=== PATIENT | female | born 1930 | race Caucasian/White ===

== ENCOUNTER 2017-01-03 11:11 | Emergency (ER) | payer MEDICARE, OTHER ==
[~2017-01-03] VITALS: Ht 172.7 cm; Wt 67.1 kg
[~2017-01-03 11:11] MED LIST: ASP81TEC PO; CALTRATE; DCS100C PO; DOXY100C2 PO; LEVO5TAB19 PO; LSRT50T PO; MECL-124 PO; METO50TA7 PO; MULT1TAB5 PO; PRD20T PO; SMV10T; SMV10T PO; SULF1TAB38; TLT2T PO; TOLT2CAP; VITAMIN D
[2017-01-03 11:36] LABS: BASOPHILS % (AUTO) 1 % (0-10); EOSINOPHILS # (AUTO) 0.2 10^3/uL (0.0-0.3); EOSINOPHILS % (AUTO) 3 % (0-10); LYMPHOCYTES # (AUTO) 0.5 X 10^3 (1.0-4.0); LYMPHOCYTES % (AUTO) 7 % (12-44); MEAN CORPUSCULAR HEMOGLOBIN 30 PG (25-34); MEAN CORPUSCULAR HGB CONC 33 G/DL (32-36); MEAN CORPUSCULAR VOLUME 91 FL (80-99); MEAN PLATELET VOLUME 10.5 FL (7.4-10.4); MONOCYTES # (AUTO) 0.4 X 10^3 (0.0-1.0); MONOCYTES % (AUTO) 7 % (0-12); NEUTROPHILS # (AUTO) 5.5 X 10^3 (1.8-7.8); NEUTROPHILS % (AUTO) 83 % (42-75); PLATELET COUNT 168 10^3/uL (130-400); RED BLOOD COUNT 4.42 10^6/uL (4.35-5.85); RED CELL DISTRIBUTION WIDTH 12.5 % (10.0-14.5); WHITE BLOOD COUNT 6.7 10^3/uL (4.3-11.0)
[2017-01-03] MEDS ORDERED: LOSA100T3 PO (11:46)
[2017-01-03] MEDS ORDERED: SULF1TAB35 PO (11:46)
[2017-01-03 11:56] LABS: ALANINE AMINOTRANSFERASE 18 U/L (0-55); ALBUMIN 3.9 G/DL (3.2-4.5); ANION GAP 10 MMOL/L (5-14); ASPARTATE AMINO TRANSFERASE 21 U/L (5-34); BILIRUBIN,TOTAL 0.6 MG/DL (0.1-1.0); BLOOD UREA NITROGEN 12 MG/DL (7-18); BUN/CREATININE RATIO 14; CALCIUM 8.9 MG/DL (8.5-10.1); CARBON DIOXIDE 25 MMOL/L (21-32); CHLORIDE 103 MMOL/L (98-107); CREATININE SERUM 0.85 MG/DL (0.60-1.30); GFR ESTIMATED > 60; GLUCOSE 97 MG/DL (70-105); POTASSIUM 3.5 MMOL/L (3.6-5.0); SODIUM 138 MMOL/L (135-145); TOTAL PROTEIN 6.7 G/DL (6.4-8.2)
[2017-01-03 12:02] LABS: TROPONIN I < 0.30 NG/ML (<0.30)
[2017-01-03 12:04] LABS: BASOPHILS % (MANUAL) 1 %; EOSINOPHILS % (MANUAL) 2 %; LYMPHOCYTES % (MANUAL) 4 %; NEUTROPHILS % (MANUAL) 88 %
--- NOTE | 2017-01-03 12:06 | Diagnostic Imaging Report ---
INDICATION: Irregular heartbeat. Patient started on medication. FINDINGS: The lungs are well-aerated. There are no infiltrates. No masses are demonstrated. The heart is not enlarged. There is no evidence of pulmonary edema. There is no hilar adenopathy. No pneumothorax or pleural effusion. IMPRESSION: Normal portable chest. Dictated by: Dictated on workstation # [id number]
--- NOTE | 2017-01-03 12:38 | ED Cardiac General ---
History of Present Illness General Chief Complaint: Cardiac/General Problems Stated Complaint: FAST HEART BEAT Nursing Triage Note: Pt. advises she has been experiencing an increase in her heart rate. She advises hx. of mitral valve. Source: patient Exam Limitations: no limitations History of Present Illness Time seen by provider: 12:31 Initial Comments The patient is a pleasant 86-year-old white female. She presents today because she believes that the Bactrim she has been taking for 2 days to treat a urinary tract infection is making her heart rate fast. She felt a pulse of 100 at home. She takes metoprolol. She has a history of mitral valve prolapse. There are no other complaints Timing/Duration: 4-6 hours Allergies and Home Medications Allergies Coded Allergies: No Known Drug Allergies (Verified , 05/14/09) Home Medications Aspirin 81 Mg Tabec, 81 MG PO DAILY, (Reported) Losartan Potassium 100 Mg Tablet, 100 MG PO DAILY, (Reported) Metoprolol Succinate 50 Mg Tab, 50 MG PO DAILY, (Reported) Multiv,Ca,Iron,Min/Fa/Phytoste 1 Each Tablet, 1 EACH PO DAILY, (Reported) Sulfamethoxazole/Trimethoprim 1 Each Tablet, 1 EACH PO BID for 7 Days, (Reported ) Tolterodine Tartrate 2 Mg Tab, 2 MG PO DAILY, (Reported) Review of Systems Constitutional: see HPI EENTM: No Symptoms Reported Respiratory: No Symptoms Reported Cardiovascular: See HPI, Palpitations Gastrointestinal: No Symptoms Reported Genitourinary: No Symptoms Reported, See HPI Musculoskeletal: no symptoms reported Skin: no symptoms reported Psychiatric/Neurological: No Symptoms Reported Endocrine: No Symptoms Reported Hematologic/Lymphatic: No Symptoms Reported Past Bnjtecz-Twolcj-Neokgf Hx Patient Social History Alcohol Use: Denies Use Recreational Drug Use: No Smoking Status: Never a Smoker Recent Foreign Travel: No Contact w/Someone Who Travel: No Recent Infectious Disease Expo: No Recent Hopitalizations: No Immunizations Up To Date Date of Pneumonia Vaccine: Oct 12, 2008 Date of Influenza Vaccine: Aug 05, 2016 Seasonal Allergies Seasonal Allergies: Yes Surgeries HX Surgeries: Yes Surgeries: Hysterectomy Respiratory Hx Respiratory Disorders: No Cardiovascular Hx Cardiac Disorders: Yes (MITRAL VALVE) Neurological Hx Neurological Disorders: Yes Neurological Disorders: Multiple Sclerosis Reproductive System Hx Reproductive Disorders: No Genitourinary Hx Genitourinary Disorders: Yes (urinary urgency) Gastrointestinal Hx Gastrointestinal Disorders: Yes Gastrointestinal Disorders: Chronic Constipation Musculoskeletal Hx Musculoskeletal Disorders: No Endocrine Hx Endocrine Disorders: No HEENT HX ENT Disorders: No Cancer Hx Cancer: No Psychosocial Hx Psychiatric Problems: Yes ("nervous") Behavioral Health Disorders: Anxiety Integumentary HX Skin/Integumentary Disorder: Yes (athelete's foot) Physical Exam Vital Signs Vital Sign - Last 12Hours 01/03/17 11:38 Temp 99.3 Pulse 85 Resp 14 B/P (MAP) 134/61 Pulse Ox 99 O2 Delivery Room Air Capillary Refill : Less Than 3 Seconds General Appearance: No Apparent Distress, WD/WN HEENT: Normal ENT Inspection Neck: Normal Inspection Respiratory: Chest Non Tender, Lungs Clear, Normal Breath Sounds, No Accessory Muscle Use, No Respiratory Distress Cardiovascular: Regular Rate, Rhythm, No Edema, No Gallop, No JVD, No Murmur, Normal Peripheral Pulses Gastrointestinal: Normal Bowel Sounds, No Organomegaly, No Pulsatile Mass, Non Tender Extremity: Normal Capillary Refill, Normal Inspection, Normal Range of Motion, Non Tender, No Calf Tenderness, No Pedal Edema Neurologic/Psychiatric: Alert, Oriented x3, No Motor/Sensory Deficits, Normal Mood/Affect Skin: Normal Color, Warm/Dry Lymphatic: No Adenopathy Progress/Results/Core Measures Results/Orders Lab Results Laboratory Tests Test 01/03/17 11:29 Range/Units White Blood Count 6.7 4.3-11.0 10^3/uL Red Blood Count 4.42 4.35-5.85 10^6/uL Hemoglobin 13.3 11.5-16.0 G/DL Hematocrit 40 35-52 % Mean Corpuscular Volume 91 80-99 FL Mean Corpuscular Hemoglobin 30 25-34 PG Mean Corpuscular Hemoglobin Concent 33 32-36 G/DL Red Cell Distribution Width 12.5 10.0-14.5 % Platelet Count 168 130-400 10^3/uL Mean Platelet Volume 10.5 H 7.4-10.4 FL Neutrophils (%) (Auto) 83 H 42-75 % Lymphocytes (%) (Auto) 7 L 12-44 % Monocytes (%) (Auto) 7 0-12 % Eosinophils (%) (Auto) 3 0-10 % Basophils (%) (Auto) 1 0-10 % Neutrophils # (Auto) 5.5 1.8-7.8 X 10^3 Lymphocytes # (Auto) 0.5 L 1.0-4.0 X 10^3 Monocytes # (Auto) 0.4 0.0-1.0 X 10^3 Eosinophils # (Auto) 0.2 0.0-0.3 10^3/uL Basophils # (Auto) 0.0 0.0-0.1 10^3/uL Neutrophils % (Manual) 88 % Lymphocytes % (Manual) 4 % Monocytes % (Manual) 5 % Eosinophils % (Manual) 2 % Basophils % (Manual) 1 % Blood Morphology Comment NORMAL Sodium Level 138 135-145 MMOL/L Potassium Level 3.5 L 3.6-5.0 MMOL/L Chloride Level 103 98-107 MMOL/L Carbon Dioxide Level 25 21-32 MMOL/L Anion Gap 10 5-14 MMOL/L Blood Urea Nitrogen 12 7-18 MG/DL Creatinine 0.85 0.60-1.30 MG/DL Estimat Glomerular Filtration Rate > 60 BUN/Creatinine Ratio 14 Glucose Level 97 70-105 MG/DL Calcium Level 8.9 8.5-10.1 MG/DL Total Bilirubin 0.6 0.1-1.0 MG/DL Aspartate Amino Transf (AST/SGOT) 21 5-34 U/L Alanine Aminotransferase (ALT/SGPT) 18 0-55 U/L Alkaline Phosphatase 66 40-136 U/L Troponin I < 0.30 <0.30 NG/ML Total Protein 6.7 6.4-8.2 G/DL Albumin 3.9 3.2-4.5 G/DL My Orders Orders - VIJAY BEDOYA MD Ekg Tracing (01/03/17 11:20) Cbc With Automated Diff (01/03/17 11:20) Comprehensive Metabolic Panel (01/03/17 11:20) Troponin I (01/03/17 11:20) Chest 1 View, Ap/Pa Only (01/03/17 11:20) Manual Differential (01/03/17 11:29) Vital Signs/I&O Vital Sign - Last 12Hours 01/03/17 11:38 Temp 99.3 Pulse 85 Resp 14 B/P (MAP) 134/61 Pulse Ox 99 O2 Delivery Room Air Blood Pressure Mean: 85 Departure Impression Impression: Primary Impression: normal exam Disposition: 01 HOME, SELF-CARE Condition: Stable/Unchanged Departure-Patient Inst. Decision time for Depature: 12:39 Referrals: JUSTIN SALDAÑA DO (PCP/Family) Primary Care Physician Add. Discharge Instructions: All discharge instructions reviewed with patient and/or family. Voiced understanding. Do not worry about a heart rate in the low 100s. Finish your Bactrim Continue to take your metoprolol If further problems see your provider VIJAY BEDOYA MD Jan 03, 2017 12:38
[2017-01-03 12:51] VITALS: BP 127/53
== END 2017-01-03 12:54 | disposition home or self-care (01) ==
LOC: EDUNIT# 11:11 → ER 11:13
DX: R00.0 Tachycardia, unspecified (principal); I34.1 Nonrheumatic mitral (valve) prolapse; Z79.899 Other long term (current) drug therapy
CPT/HCPCS: 36415; 71010; 80053; 84484; 85007; 85027; 93005

== ENCOUNTER → 2017-01-06 | Outpatient (CLI) | payer MEDICARE, OTHER ==
[~2017-01-06] MED LIST changes: +LOSA100T3 PO; +SULF1TAB35 PO
--- NOTE | 2017-01-08 12:22 | Diagnostic Imaging Report ---
Bilateral screening mammogram. The current study was also evaluated with a Computer Aided Detection (CAD) system. INDICATION: Screening. No current complaints stated on the questionnaire. COMPARISON: 01/08/2016. FINDINGS: The breasts are composed of scattered fibroglandular densities. There are scattered benign-appearing calcifications. In the left periareolar region, there is a question of partial nipple retraction and retroareolar asymmetry with increased density compared to prior exams. The right breast demonstrates no definite change. IMPRESSION: There is question of partial nipple retraction and increased retroareolar density in the left breast. Focal compression views and ultrasound evaluation is recommended. ACR BI-RADS Category 0: Incomplete. (Needs additional imaging evaluation). Result letter will be mailed to the patient. Note: At least 10% of breast cancer is not imaged by mammography. Dictated by: Dictated on workstation # [id number]
== END ==
LOC: RAD 12:31
PROVIDERS: ATTEND Internal Medicine
DX: Z12.31 Encounter for screening mammogram for malignant neoplasm of breast (principal)
CPT/HCPCS: 77067

== ENCOUNTER → 2017-01-21 | Outpatient (CLI) | payer MEDICARE, OTHER ==
--- NOTE | 2017-01-21 13:59 | Diagnostic Imaging Report ---
Left breast diagnostic mammogram. INDICATION: Asymmetry along the lateral periareolar region of the left breast. The current study was also evaluated with a Computer Aided Detection (CAD) system. FINDINGS: Focal compression views demonstrate less prominent asymmetry in favor of summation artifact of parenchyma. IMPRESSION: Less prominent asymmetry and focal compression view in favor of summation artifact of parenchyma. Ultrasound evaluation pending. ACR BI-RADS Category 0: Incomplete. (Needs additional imaging evaluation). Result letter will be mailed to the patient. Note: At least 10% of breast cancer is not imaged by mammography. Dictated by: Dictated on workstation # [id number]
--- NOTE | 2017-01-21 14:16 | Diagnostic Imaging Report ---
EXAMINATION: Left breast ultrasound. INDICATION: Asymmetry in the periareolar region. FINDINGS: There is a small hypoechoic lesion in the retroareolar area of the left breast, only seen in one plane with perpendicular imaging demonstrating no definite abnormality suggestive of a fibrous band or nipple shadow with no underlying true lesion identified. IMPRESSION: Essentially negative study. The mammographic asymmetry is probably summation artifact of parenchyma. ACR BI-RADS Category 1: Negative. Dictated by: Dictated on workstation # [id number]
== END ==
LOC: RAD 13:04
PROVIDERS: ATTEND Internal Medicine
DX: R92.8 Other abnormal and inconclusive findings on diagnostic imaging of breast (principal)
CPT/HCPCS: 76642

== ENCOUNTER 2017-03-09 19:11 | Emergency (ER) | payer MEDICARE, OTHER ==
[~2017-03-09] VITALS: Ht 172.7 cm; Wt 67.1 kg
[2017-03-09 19:46] LABS: BILIRUBIN,URINE NEGATIVE (NEGATIVE); KETONES,URINE NEGATIVE (NEGATIVE); LEUKOCYTE ESTERASE ,URINE NEGATIVE (NEGATIVE); NITRITE,URINE NEGATIVE (NEGATIVE); PH,URINE 7 (5-9); PROTEIN,URINE NEGATIVE (NEGATIVE); UROBILINOGEN,URINE NORMAL (NORMAL)
[2017-03-09 19:53] LABS: WBC,URINE RARE /HPF
--- NOTE | 2017-03-09 20:11 | ED GU-Female ---
General Chief Complaint: -Female Stated Complaint: BACK PAIN Nursing Triage Note: flank pain/uti symptoms since 1600 Nursing Sepsis Screen: No Definite Risk Source: patient, family Exam Limitations: no limitations History of Present Illness Time seen by provider: 20:11 Allergies and Home Medications Allergies Coded Allergies: No Known Drug Allergies (Verified , 05/14/09) Home Medications Aspirin 81 Mg Tabec, 81 MG PO DAILY, (Reported) Hydrocodone/Acetaminophen 1 Each Tablet, 1 EACH PO Q4H PRN for PAIN, #14 Ref 0 Prescribed by: KANE OREILLY on 03/09/172152 Losartan Potassium 100 Mg Tablet, 100 MG PO DAILY, (Reported) Metoprolol Succinate 50 Mg Tab, 50 MG PO DAILY, (Reported) Multiv,Ca,Iron,Min/Fa/Phytoste 1 Each Tablet, 1 EACH PO DAILY, (Reported) Phenazopyridine HCl 100 Mg Tablet, 100 MG PO Q8H PRN for SPASMS, #14 Ref 1 Prescribed by: KANE OREILLY on 03/09/172152 Past Huluush-Pwzoee-Fyxlqu Hx Patient Social History Alcohol Use: Denies Use Recreational Drug Use: No Smoking Status: Never a Smoker 2nd Hand Smoke Exposure: No Recent Foreign Travel: No Contact w/Someone Who Travel: No Recent Infectious Disease Expo: No Recent Hopitalizations: No Immunizations Up To Date Tetanus Booster (TDap): Unknown Date of Pneumonia Vaccine: Oct 12, 2008 Date of Influenza Vaccine: Aug 05, 2016 Seasonal Allergies Seasonal Allergies: Yes Surgeries HX Surgeries: Yes Surgeries: Hysterectomy Respiratory Hx Respiratory Disorders: No Cardiovascular Hx Cardiac Disorders: Yes (MITRAL VALVE) Neurological Hx Neurological Disorders: Yes Neurological Disorders: Multiple Sclerosis Reproductive System : No 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, Menopausal Genitourinary Hx Genitourinary Disorders: Yes (urinary urgency) Gastrointestinal Hx Gastrointestinal Disorders: Yes Gastrointestinal Disorders: Chronic Constipation Musculoskeletal Hx Musculoskeletal Disorders: No Endocrine Hx Endocrine Disorders: No HEENT HX ENT Disorders: No Cancer Hx Cancer: No Psychosocial Hx Psychiatric Problems: Yes ("nervous") Behavioral Health Disorders: Anxiety Integumentary HX Skin/Integumentary Disorder: Yes (athelete's foot) Physical Exam Vital Signs Vital Sign - Last 12Hours 03/09/17 19:35 Temp 98.1 Pulse 77 Resp 16 B/P (MAP) 185/85 Pulse Ox 96 O2 Delivery Room Air Capillary Refill : Less Than 3 Seconds Progress/Results/Core Measures Results/Orders Lab Results Laboratory Tests Test 03/09/17 19:39 Range/Units Urine Color YELLOW Urine Clarity SLIGHTLY CLOUDY Urine pH 7 5-9 Urine Specific [place] 1.010 L 1.016-1.022 Urine Protein NEGATIVE NEGATIVE Urine Glucose (UA) NEGATIVE NEGATIVE Urine Ketones NEGATIVE NEGATIVE Urine Nitrite NEGATIVE NEGATIVE Urine Bilirubin NEGATIVE NEGATIVE Urine Urobilinogen NORMAL NORMAL MG/DL Urine Leukocyte Esterase NEGATIVE NEGATIVE Urine RBC (Auto) 2+ H NEGATIVE Urine RBC 2-5 H /HPF Urine WBC RARE /HPF Urine Squamous Epithelial Cells 2-5 /HPF Urine Crystals NONE /LPF Urine Bacteria NEGATIVE /HPF Urine Casts NONE /LPF Urine Mucus NEGATIVE /LPF Urine Culture Indicated NO My Orders Orders - KANE OREILLY Ua Culture If Indicated (03/09/17 19:39) Abdomen/Kub 1view (03/09/17 20:05) Ct Abd/Pelvis Wo(Kidney Stone) (03/09/17 20:17) Hydrocodone/Apap 5/325 Tablet (Lortab 5 (03/09/17 21:25) Phenazopyridine Tablet (Pyridium Tablet) (03/09/17 21:25) Vital Signs/I&O Vital Sign - Last 12Hours 03/09/17 19:35 Temp 98.1 Pulse 77 Resp 16 B/P (MAP) 185/85 Pulse Ox 96 O2 Delivery Room Air Blood Pressure Mean: 118 Departure Impression Impression: Primary Impression: Renal colic on left side Additional Impression: Hematuria Disposition: 01 HOME, SELF-CARE Condition: Improved Departure-Patient Inst. Decision time for Depature: 21:52 Referrals: JUSTIN DELACRUZ DO (PCP/Family) Primary Care Physician Patient Instructions: Blood in the Urine (Hematuria) in Adults, Kidney Stones ( DC), Renal Colic (DC) Add. Discharge Instructions: All discharge instructions reviewed with patient and/or family. Voiced understanding. Medications as instructed. Continue usual home medications. Drink plenty of fluids. Follow-up with Dr. Delacruz for recheck and repeat urinalysis testing this week. Call for appointment time. Return to the emergency department for worsened pain, fever, blood in the urine, inability to urinate, vomiting, numbness, weakness, bowel incontinence, bladder, or any other concerns. Scripts Hydrocodone/Acetaminophen (Hydrocodon -Acetaminophen 5-325) 1 Each Tablet 1 EACH PO Q4H Y for PAIN, #14 TAB 0 Refills Prov: KANE OREILLY 03/09/17 Phenazopyridine HCl (Pyridium) 100 Mg Tablet 100 MG PO Q8H Y for SPASMS, #14 TAB 1 Refill Prov: KANE OREILLY 03/09/17 KANE OREILLY March 09, 2017 20:11
--- NOTE | 2017-03-09 20:38 | Diagnostic Imaging Report ---
INDICATION: Lower left-sided pain started earlier today FINDINGS: Supine view of the abdomen is compared to an exam from 2009. The lung bases are clear. Benign calcifications are again seen in the left upper quadrant and appears stable. Degenerative changes are present in the spine. Moderate amount of stool is present. There is questionable mild thickening of a small bowel loop in the left midabdomen. IMPRESSION: 1. There is questionable mild bowel wall thickening of a small bowel loop in the left midabdomen. 2. Constipation. 3. Degenerative spine. Dictated by: Dictated on workstation # [id number]
--- NOTE | 2017-03-09 20:51 | Diagnostic Imaging Report ---
PROCEDURE: CT urinary tract, rule out kidney stone. TECHNIQUE: Multiple contiguous axial images were obtained through the abdomen and pelvis without the use of intravenous contrast. INDICATION: Left-sided abdominal pain starting today, previous hysterectomy. COMPARISON STUDIES: None FINDINGS: The lung bases are clear. Some calcifications are present in the spleen. These were seen dating back to 2008. The liver appears normal. No duct dilatation is present. Pancreas, adrenal glands and kidneys are normal. The appendix normal. There are some fluid-filled loops of small bowel without dilatation, possible mild enteritis. Mesentery is normal. Degenerative changes are present within the spine. IMPRESSION: 1. Small bowel loops are fluid-filled without distention, possible mild enteritis. 2. 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 Dictated by: Dictated on workstation # [id number]
[2017-03-09] MEDS ORDERED: HYDROcodone/APAP 5 MG/325 MG (LORTAB) TAB PO STA (21:25)
[2017-03-09] MEDS ORDERED: PHENAZOPYRIDINE 100 MG (PYRIDIUM) TABLET PO STA (21:25)
[2017-03-09] MEDS ORDERED: PHEN-639 PO (21:53)
[2017-03-09] MEDS ORDERED: HYDR-3812 PO (21:53)
[2017-03-09 22:09] VITALS: BP 168/79
== END 2017-03-09 22:10 | disposition home or self-care (01) ==
LOC: EDUNIT# 19:11 → ER 19:13
DX: N23 Unspecified renal colic (principal); R31.29 Other microscopic hematuria; K59.00 Constipation, unspecified; D73.9 Disease of spleen, unspecified; M47.816 Spondylosis without myelopathy or radiculopathy, lumbar region; G35 Multiple sclerosis; Z79.82 Long term (current) use of aspirin; Z79.899 Other long term (current) drug therapy
CPT/HCPCS: 74000; 74176; 81000; 99282

== ENCOUNTER 2017-03-21 13:44 | Emergency (ER) | payer MEDICARE, OTHER ==
[~2017-03-21] VITALS: Ht 172.7 cm; Wt 64.4 kg
[~2017-03-21 13:44] MED LIST changes: +HYDR-3812 PO; -LEVO5TAB19 PO; +LEVO5TAB28 PO; +PHEN-639 PO
[2017-03-21] MEDS ORDERED: TOLTA4 PO (14:17)
[2017-03-21 15:25] LABS: BILIRUBIN,URINE NEGATIVE (NEGATIVE); KETONES,URINE NEGATIVE (NEGATIVE); LEUKOCYTE ESTERASE ,URINE NEGATIVE (NEGATIVE); NITRITE,URINE NEGATIVE (NEGATIVE); PH,URINE 6 (5-9); PROTEIN,URINE NEGATIVE (NEGATIVE); UROBILINOGEN,URINE NORMAL (NORMAL)
[2017-03-21] MEDS ORDERED: PHENAZOPYRIDINE 100 MG (PYRIDIUM) TABLET PO ONE (15:45)
[2017-03-21 15:46] LABS: SQUAMOUS EPITHELIAL CELL,UR 0-2 /HPF
[2017-03-21] MEDS ORDERED: TRAM50TA2 PO (17:29)
--- NOTE | 2017-03-21 17:29 | ED Back Pain ---
General Chief Complaint: Back Problems Stated Complaint: RIGHT FLANK PAIN Nursing Triage Note: pt reports she was seen in ED on 03/09/17, possible kidney stone. she reports she is having similar symptoms, right flank pain, starting this a.m. Nursing Sepsis Screen: No Definite Risk History of Present Illness Time Seen by Provider: 15:00 Initial Comments evaluation for right lower back and flank pain. She has Pyridium at home, she has not been taking it recently. Location: Lumbar Spine Timing/Duration: 4-6 Hours Severity: Mild Pain/Injury Location: None Modifying Factors: Improves With Rest Associated Symptoms: No muscle spasms, No fever, No weakness, No numbness in legs/feet, No tingling in legs/feet, No sensory/motor loss, lower back pain, No loss of bladder control, No loss of bowel control Allergies and Home Medications Allergies Coded Allergies: No Known Drug Allergies (Verified , 05/14/09) Home Medications Aspirin 81 Mg Tabec, 81 MG PO DAILY, (Reported) Hydrocodone/Acetaminophen 1 Each Tablet, 1 EACH PO Q4H PRN for PAIN, #14 Ref 0 Prescribed by: KANE OREILLY on 03/09/172152 Losartan Potassium 100 Mg Tablet, 100 MG PO DAILY, (Reported) Metoprolol Succinate 50 Mg Tab, 50 MG PO DAILY, (Reported) Multiv,Ca,Iron,Min/Fa/Phytoste 1 Each Tablet, 1 EACH PO DAILY, (Reported) Phenazopyridine HCl 100 Mg Tablet, 100 MG PO Q8H PRN for SPASMS, #14 Ref 1 Prescribed by: KANE OREILLY on 03/09/172152 Tolterodine Tartrate 4 Mg Cap, 4 MG PO PRN, #90 (Reported) Tramadol HCl 50 Mg Tablet, 50 MG PO Q8H PRN for PAIN-MODERATE, #12 Ref 0 Prescribed by: CISCO GOLDSTEIN on 03/21/17 1729 Constitutional: no symptoms reported, see HPI EENTM: no symptoms reported, see HPI Respiratory: no symptoms reported, see HPI Cardiovascular: no symptoms reported, see HPI Gastrointestinal: no symptoms reported, see HPI Genitourinary: see HPI, pain (right flank) Musculoskeletal: see HPI, back pain Skin: no symptoms reported, see HPI Psychiatric/Neurological: No Symptoms Reported, See HPI All Other Systems Reviewed Negative Unless Noted: Yes Past Afeicfz-Rzwnzg-Dwjtre Hx Patient Social History Alcohol Use: Denies Use Recreational Drug Use: No 2nd Hand Smoke Exposure: No Recent Foreign Travel: No Contact w/Someone Who Travel: No Recent Infectious Disease Expo: No Recent Hopitalizations: No Immunizations Up To Date Tetanus Booster (TDap): Unknown Date of Pneumonia Vaccine: Oct 12, 2008 Date of Influenza Vaccine: Aug 05, 2016 Seasonal Allergies Seasonal Allergies: Yes Surgeries HX Surgeries: Yes Surgeries: Hysterectomy Respiratory Hx Respiratory Disorders: No Cardiovascular Hx Cardiac Disorders: Yes (MITRAL VALVE) Neurological Hx Neurological Disorders: Yes Neurological Disorders: Multiple Sclerosis Reproductive System Hx 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, Menopausal Genitourinary Hx Genitourinary Disorders: Yes (urinary urgency) Gastrointestinal Hx Gastrointestinal Disorders: Yes Gastrointestinal Disorders: Chronic Constipation Musculoskeletal Hx Musculoskeletal Disorders: No Endocrine Hx Endocrine Disorders: No HEENT HX ENT Disorders: No Cancer Hx Cancer: No Psychosocial Hx Psychiatric Problems: Yes ("nervous") Behavioral Health Disorders: Anxiety Integumentary HX Skin/Integumentary Disorder: Yes (athelete's foot) Reviewed Nursing Assessment Reviewed/Agree w Nursing PMH: Yes Physical Exam Vital Signs Vital Sign - Last 12Hours 03/21/17 14:09 Temp 98.0 Pulse 70 Resp 18 B/P (MAP) 156/77 Pulse Ox 99 O2 Delivery Room Air Capillary Refill : Less Than 3 Seconds General Appearance: No Apparent Distress, WD/WN HEENT: PERRL/EOMI, TMs Normal, Normal ENT Inspection, Pharynx Normal Neck: Full Range of Motion, Normal Inspection, Non Tender, Supple Cardiovascular: Regular Rate, Rhythm, No Edema, No Murmur, Normal Peripheral Pulses Respiratory: Chest Non Tender, Lungs Clear, Normal Breath Sounds Gastrointestinal: Normal Bowel Sounds, No Organomegaly, No Pulsatile Mass, Non Tender, Soft, No Distended, No Guarding Back: Normal Inspection, No Vertebral Tenderness, CVA Tenderness (R) (trace) Extremity: Normal Capillary Refill, Normal Inspection, Normal Range of Motion, Non Tender, No Calf Tenderness, No Pedal Edema Neurologic/Psychiatric: Alert, Oriented x3, No Motor/Sensory Deficits, Normal Mood/Affect Skin: Normal Color Comments full range of motion lumbar spine and hips. Negative straight leg raising sign bilaterally. Power V/V L5-S1. Progress/Results/Core Measures Results/Orders Lab Results Laboratory Tests Test 03/21/17 14:42 Range/Units Urine Color YELLOW Urine Clarity CLEAR Urine pH 6 5-9 Urine Specific [place] 1.015 L 1.016-1.022 Urine Protein NEGATIVE NEGATIVE Urine Glucose (UA) NEGATIVE NEGATIVE Urine Ketones NEGATIVE NEGATIVE Urine Nitrite NEGATIVE NEGATIVE Urine Bilirubin NEGATIVE NEGATIVE Urine Urobilinogen NORMAL NORMAL MG/DL Urine Leukocyte Esterase NEGATIVE NEGATIVE Urine RBC (Auto) 1+ H NEGATIVE Urine RBC 0-2 /HPF Urine WBC NONE /HPF Urine Squamous Epithelial Cells 0-2 /HPF Urine Crystals NONE /LPF Urine Bacteria NEGATIVE /HPF Urine Casts NONE /LPF Urine Mucus NEGATIVE /LPF Urine Culture Indicated NO My Orders Orders - CISCO GOLDSTEIN Ua Culture If Indicated (03/21/17 15:20) Tramadol Tablet (Ultram Tablet) (03/21/17 15:36) Phenazopyridine Tablet (Pyridium Tablet) (03/21/17 15:45) Medications Given in ED Current Medications Medications Dose Ordered Sig/Rosenda Route Start Time Stop Time Status Last Admin Dose Admin Phenazopyridine HCl 100 mg ONCE ONCE PO 03/21/17 15:45 03/21/17 15:46 DC 03/21/17 16:47 100 MG Vital Signs/I&O Vital Sign - Last 12Hours 03/21/17 03/21/17 14:09 17:33 Temp 98.0 Pulse 70 72 Resp 18 18 B/P (MAP) 156/77 Pulse Ox 99 98 O2 Delivery Room Air Room Air Blood Pressure Mean: 103 Progress Note : Time: 15:00 Progress Note she'll evaluation completed, will obtain UA and reevaluate after this UA essentially normal with 1+ RBCs 1540 Pyridium 100 mg by mouth and tramadol 50 mg by mouth for pain. 1620 patient reports improvement in her pain since medication. 1630 discussed with patient and her daughter the importance of increasing water , follow-up with primary care provider early next week if continued symptoms and consider referral to urology. Departure Impression Impression: Primary Impression: Back pain Qualified Codes: M54.5 - Low back pain; G89.29 - Other chronic pain Disposition: 01 HOME, SELF-CARE Condition: Improved Departure-Patient Inst. Decision time for Depature: 17:00 Referrals: JUSTIN DELACRUZ DO (PCP/Family) Primary Care Physician Patient Instructions: Lumbar Muscle Strain (DC) Add. Discharge Instructions: Increase water intake. Continue to use home medicines for pain as needed. Follow-up with Dr. Delacruz early next week if continued symptoms. Return to emergency department for fevers, increased right back pain, difficulty urinating or new problems. All discharge instructions reviewed with patient and/or family. Voiced understanding. Scripts Tramadol HCl (Tramadol HCl) 50 Mg Tablet 50 MG PO Q8H Y for PAIN-MODERATE, #12 TAB 0 Refills Prov: CISCO GOLDSTEIN 03/21/17 CISCO GOLDSTEIN Mar 21, 2017 17:29
[2017-03-21 17:33] VITALS: BP 171/88
== END 2017-03-21 17:39 | disposition home or self-care (01) ==
LOC: EDUNIT# 13:44 → ER 13:45
DX: M54.5 Low back pain (principal); Z79.82 Long term (current) use of aspirin; Z90.710 Acquired absence of both cervix and uterus; Z78.0 Asymptomatic menopausal state
CPT/HCPCS: 81000; 99282

== ENCOUNTER → 2017-05-07 | Outpatient (CLI) | payer MEDICARE, OTHER ==
[~2017-05-07] MED LIST changes: +TOLTA4 PO; +TRAM50TA2 PO
== END ==
LOC: CARD 12:26
PROVIDERS: ATTEND Nurse Practitioner Family
DX: I35.8 Other nonrheumatic aortic valve disorders (principal); I34.0 Nonrheumatic mitral (valve) insufficiency; I07.1 Rheumatic tricuspid insufficiency; E78.4 Other hyperlipidemia; I10 Essential (primary) hypertension
CPT/HCPCS: 93306

== ENCOUNTER → 2017-06-13 | Outpatient (CLI) | payer MEDICARE, OTHER ==
[2017-06-13 11:41] LABS: BASOPHILS % (AUTO) 0 % (0-10); EOSINOPHILS % (AUTO) 0 % (0-10); LYMPHOCYTES # (AUTO) 0.8 X 10^3 (1.0-4.0); LYMPHOCYTES % (AUTO) 12 % (12-44); MEAN CORPUSCULAR HEMOGLOBIN 30 PG (25-34); MEAN CORPUSCULAR HGB CONC 33 G/DL (32-36); MEAN CORPUSCULAR VOLUME 92 FL (80-99); MEAN PLATELET VOLUME 10.6 FL (7.4-10.4); MONOCYTES # (AUTO) 0.5 X 10^3 (0.0-1.0); MONOCYTES % (AUTO) 7 % (0-12); NEUTROPHILS # (AUTO) 5.6 X 10^3 (1.8-7.8); NEUTROPHILS % (AUTO) 81 % (42-75); PLATELET COUNT 160 10^3/uL (130-400); RED BLOOD COUNT 4.41 10^6/uL (4.35-5.85); RED CELL DISTRIBUTION WIDTH 12.6 % (10.0-14.5)
== END ==
LOC: LAB 11:25
PROVIDERS: ATTEND Nurse Practitioner Family
DX: R10.32 Left lower quadrant pain (principal)
CPT/HCPCS: 36415; 85025; 85027

== ENCOUNTER → 2018-01-07 | Outpatient (CLI) | payer MEDICARE, OTHER ==
[~2018-01-07] MED LIST changes: +ACHD5005 PO; -HYDR-3812 PO
--- NOTE | 2018-01-07 16:02 | Diagnostic Imaging Report ---
INDICATION: Routine screening. COMPARISON: 01/06/2017 and 01/08/2016. TECHNIQUE: Screening digital mammography was performed bilaterally with a Computer Aided Detection (CAD) system. FINDINGS: Moderate parenchymal heterogeneity and increased density are noted, limiting the sensitivity of mammography. No discrete mass or malignant appearing microcalcifications are seen. There are benign calcifications bilaterally. The axillae are unremarkable. IMPRESSION: No mammographic features suspicious for malignancy are identified. ACR BI-RADS Category 2: Benign findings. Result letter will be mailed to the patient. Note: At least 10% of breast cancer is not imaged by mammography. Dictated by: Dictated on workstation # [id number]
== END ==
LOC: RAD 14:32
PROVIDERS: ATTEND Nurse Practitioner Family
DX: Z12.31 Encounter for screening mammogram for malignant neoplasm of breast (principal)
CPT/HCPCS: 77067